=== PATIENT | female | born 1940 | race Caucasian/White ===

== ENCOUNTER 2023-10-10 12:58 | Outpatient (CLI) | payer MEDICARE ==
[2023-10-10 15:32] LABS: INR-International Normal Ratio 0.9; Prothrombin Time 10.2 sec (9.5-12.1)
[2023-10-10 15:38] LABS: Anion Gap 12 mmol/L (10-20); BUN (Urea Nitrogen) 16 mg/dL (9.8-20.1); Calc. Creatinine Clearance 0 mL/min (70-130); Calcium 8.5 mg/dL (7.8-10.44); Carbon Dioxide 24 mmol/L (23-31); Chloride 110 mmol/L (98-107); Estimated GFR 48; Glucose 84 mg/dL (83-110); Potassium 3.5 mmol/L (3.5-5.1); Sodium 142 mmol/L (136-145)
[2023-10-10 15:49] LABS: #Basophils 0.1 10x3/uL (0.0-0.2); #Eosinphils 0.2 10x3/uL (0.0-0.5); #Monocytes 0.7 10x3/uL (0.0-1.1); #Neutrophils 5.4 10x3/uL (1.5-8.4); %Basophils 0.6 % (0.0-2.0); %Eosinophils 2.8 % (0.0-6.0); %Lymphocytes 21.6 % (18.0-47.0); %Monocytes 8.3 % (0.0-10.0); %Neutrophils 66.1 % (40.0-75.0); Hematocrit 22.3 % (34.9-44.5); Hemoglobin 5.9 g/dL (12.0-15.5); Mean Corpuscular HGB CONC 26.5 g/dL (32.0-36.0); Mean Corpuscular Hemoglobin 15.7 pg (27.0-33.0); Mean Corpuscular Volume 59.5 fl (81.6-98.3); Mean Platelet Volume 8.7 fl (7.4-10.4); Platelet Count 473 10x3/uL (150-450); RBC Distribution Width 23.4 % (11.5-14.5); Red Blood Cell (RBC) Count 3.75 10x6/uL (3.90-5.03); White Blood Cell (WBC) Count 8.1 10x3/uL (3.5-10.5)
[2023-10-10 16:35] LABS: Anisocytosis SLIGHT = 6-15 cells (100X) (0-5/hpf); Hypochromia MODERATE=16-30 cells (100X) (0-5/hpf); Microcytosis MODERATE=15-30 cells (100X) (0-5/hpf); Poikilocytosis SLIGHT = 6-15 cells (100X) (0-5/hpf); Polychromasia SLIGHT = 2-3 cells (100X) (0-2/hpf)
[2023-10-10 16:37] LABS: Ovalocytes SLIGHT = 2-5 cells (100X) (0-1/hpf); Tear Drops SLIGHT = 2-5 cells (100X) (0-1/hpf)
[2023-10-10 16:38] LABS: Platelet Adequacy Comment Appears Increased
== END 2023-10-10 12:59 | disposition home or self-care (01) ==
LOC: LABBT 12:58
PROVIDERS: ATTEND Orthopaedic Surgery
DX: Z01.818 Encounter for other preprocedural examination (principal); M16.12 Unilateral primary osteoarthritis, left hip
CPT/HCPCS: 80048; 85025; 85610; 87081; 93005; 93010